=== PATIENT | male | born 1985 | race American Indian/Alaskan Native ===

== ENCOUNTER 2018-06-24 17:35 | Emergency (ER) | payer SELFPAY ==
[2018-06-24 17:49] VITALS: BP 126/68
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
--- NOTE | 2018-06-24 19:53 | XRay Report ---
PROCEDURE: XR SHOULDER 2+V LT TECHNIQUE: AP, Y, and oblique views of the left shoulder HISTORY: ac joint pain in the left shoulder COMPARISONS: None . FINDINGS: There is no evidence of acute fracture or dislocation. Joint spaces are maintained and bony mineraliz ation is normal. Soft tissues are unremarkable. IMPRESSION: No acute abnormality identified in the left shoulder. This document is electronically signed by Tanya Burrows MD., June 24 2018 07:51:21 PM ET
== END 2018-06-24 23:30 | disposition left against medical advice (07) ==
LOC: ED 17:35
DX: M25.512 Pain in left shoulder (principal); Z53.21 Procedure and treatment not carried out due to patient leaving prior to being seen by health care provider